=== PATIENT | female | born 1965 | race African-American/Black ===

== ENCOUNTER 2020-11-11 04:53 | Day surgery (SDC) | payer OTHER ==
[2020-11-08 10:53] VITALS: BMI 26.9
[2020-11-11 10:35] VITALS: TEMP 97.7
[2020-11-11 11:43] VITALS: BP 103/61; PULSE 62
== END 2020-11-11 11:55 | disposition home or self-care (01) ==
LOC: JASU-ENDO 04:53
PROVIDERS: ATTEND Internal Medicine Gastroenterology
PROC: 0DJD8ZZ Inspection of Lower Intestinal Tract, Via Natural or Artificial Opening Endoscopic (ICD-10-PCS; principal; 2020-11-11 10:00)
DX: Z12.11 Encounter for screening for malignant neoplasm of colon (principal)